=== PATIENT | male | born 1995 | race African-American/Black ===

== ENCOUNTER 2020-07-29 19:28 | Emergency (ER) | payer MEDICAID ==
[~2020-07-29] VITALS: Ht 170.2 cm; Wt 74.0 kg
[2020-07-29] MEDS ORDERED: MORPHINE SULFATE 4 MG/ML CPJ (NOT FOR IM USE) IV ONE (19:45)
[2020-07-29] MEDS ORDERED: SODIUM CHLORIDE 0.9% 1,000 ML IV ONE (19:45)
[2020-07-29 20:41] LABS: EOSINOPHILS % 1.2 % (0.0-5.0); HEMATOCRIT. 44.2 % (42.0-52.0); HEMOGLOBIN. 14.9 g/dL (14.0-18.0); LYMPHOCYTES % 32.9 % (20.0-50.0); MEAN CORPUSCULAR HEMOGLOBIN 31.9 pg (28.0-32.0); MEAN CORPUSCULAR VOLUME 94.7 fL (80.0-94.0); MEAN PLATELET VOLUME 9.5 fl (7.4-10.4); MONOCYTES % 8.4 % (2.0-8.0); NEUTROPHILS % 56.5 % (40.0-76.0); PLATELET 191 x1000/uL (130-400); RED BLOOD CELL COUNT 4.67 mill/uL (4.7-6.1); RED CELL DISTRIBUTION WIDTH 13.2 % (11.6-14.6)
[2020-07-29 20:51] LABS: CHLORIDE 107 mEq/L (98-107)
[2020-07-29 22:21] LABS: *AMPHETAMINES SCREEN URINE NEGATIVE (NEGATIVE); CANNABINOID URINE SCREEN PRESUMTIVE POSITIVE (NEGATIVE); METHADONE URINE SCREEN NEGATIVE (NEGATIVE); OPIATES URINE SCREEN PRESUMTIVE POSITIVE (NEGATIVE); PHENCYCLIDINE URINE SCREEN NEGATIVE (NEGATIVE)
[2020-07-29 22:22] LABS: *BARBITURATES SCREEN URINE NEGATIVE (NEGATIVE); *BENZODIAZEPINES SCREEN URINE NEGATIVE (NEGATIVE); *COCAINE SCREEN URINE NEGATIVE (NEGATIVE)
[2020-07-29] MEDS ORDERED: IOHEXOL-350 100 ML BOTTLE ONE (22:56)
[2020-07-29] MEDS ORDERED: OXYC-100 MT (23:06)
[2020-07-29] MEDS ORDERED: IBUP-2030 MT (23:06)
[2020-07-29 23:28] VITALS: BP 130/70
== END 2020-07-29 23:29 | disposition home or self-care (01) ==
LOC: ER 19:28
DX: S82.001A Unspecified fracture of right patella, initial encounter for closed fracture (principal); F12.10 Cannabis abuse, uncomplicated; I49.9 Cardiac arrhythmia, unspecified; Z13.9 Encounter for screening, unspecified; W34.00XA Accidental discharge from unspecified firearms or gun, initial encounter; Y93.89 Activity, other specified; Y92.89 Other specified places as the place of occurrence of the external cause; Y99.8 Other external cause status
CPT/HCPCS: 36415; 73564; 73706; 80048; 80305; 85025; 93005; 96361; 96374; 99285; J2270; J7030; L1830; Q9967; Z7610